=== PATIENT | male | born 1985 | race Hispanic/Latino ===

== ENCOUNTER 2017-10-03 12:38 | Inpatient (IN) | payer BC ==
[2017-10-03 13:13] VITALS: BMI 37.6
[2017-10-03 13:53] LABS: BASO # 0.14 K/mm3 (0.0-2.0); BASO % 1.3 % (0.0-3.0); EOS # 0.3 (0.0-0.7); EOS % 2.5 % (1.5-5.0); GRAN # 8.2 (1.4-6.5); GRAN % 74.9 % (50.0-68.0); HEMOGLOBIN 12.4 g/dL (14.0-18.0); LYMPH # 1.3 (1.2-3.4); LYMPH % 12.1 % (22.0-35.0); MEAN CELL VOLUME 96.7 fl (80.0-105.0); MEAN CORPUSCULAR HEMOGLOBIN 33.8 pg (25.0-35.0); MEAN CORPUSCULAR HGB CONC 34.9 g/dl (31.0-37.0); MEAN PLATELET VOLUME 12.6 fl (7.0-11.0); MONO % 9.2 % (1.0-6.0); RBC 3.67 10^6/uL (3.5-6.1); RED CELL DISTRIBUTION WIDTH 15.3 % (11.5-14.5); WHITE BLOOD COUNT 10.9 10^3/ul (4.5-11.0)
--- NOTE | 2017-10-03 13:59 | ED PDOC ---
Arrival/HPI - General Chief Complaint: Abnormal Skin Integrity Time Seen by Provider: 10/03/17 13:20 Historian: Patient - History of Present Illness Narrative History of Present Illness (Text): 10/03/17 13:30 32 year old male, who presents to the emergency department complaining of jaundice. Patient and dad reports the first blood work done on him was on September 13 and the last blood work was done one week ago with abnormal findings of Billirubin increase from 13 to 23 and increase in his ALT / AST as well. Patient states he used to be a heavy drinker and has currently stopped. Patient denies other complaints. PMD: Dr. Manzo Time/Duration: Prior to Arrival Symptom Onset: Sudden Symptom Course: Unchanged Past Medical History - Provider Review Nursing Documentation Reviewed: Yes - Hematological/Oncological Other/Comment: EBV - Psychiatric Hx Depression: No Hx Emotional Abuse: No Hx Physical Abuse: No Hx Substance Use: No - Surgical History Other/Comment: left shoulder surgery - Anesthesia Hx Anesthesia: Yes Hx Anesthesia Reactions: No - Suicidal Assessment Feels Threatened In Home Enviroment: No Family/Social History - Physician Review Nursing Documentation Reviewed: Yes Family/Social History: Unknown Family HX Smoking Status: Light Smoker < 10 Cigarettes Daily Hx Alcohol Use: Yes Frequency of alcohol use: Daily Hx Substance Use: No Hx Substance Use Treatment: No Allergies/Home Meds Allergies/Adverse Reactions: Allergies No Known Allergies Allergy (Verified 10/03/17 18:45) Home Medications: Home Meds Medication Instructions Recorded Confirmed Acamprosate Calcium 333 mg PO TID 10/03/17 10/03/17 Acyclovir 5% [Zovirax] 1 tsp TP 5XD 10/03/17 10/03/17 Pantoprazole Sodium [Protonix] 20 mg PO DAILY 10/03/17 10/03/17 diaZEpam [Valium] 5 mg PO TID 10/03/17 10/03/17 Review of Systems - Review of Systems Constitutional: absent: Fevers Eyes: absent: Vision Changes Respiratory: absent: SOB Cardiovascular: absent: Chest Pain Gastrointestinal: absent: Abdominal Pain Genitourinary Male: absent: Dysuria Musculoskeletal: absent: Back Pain Skin: Other (jaundice ). absent: Rash Neurological: absent: Headache Physical Exam Vital Signs Reviewed: Yes Vital Signs Temp Pulse Resp BP Pulse Ox 10/03/17 16:47 72 18 142/82 98 10/03/17 15:00 86 18 148/79 97 10/03/17 13:01 98.2 F 94 H 18 154/85 H 97 Temperature: Afebrile Blood Pressure: Hypertensive Pulse: Tachycardic Respiratory Rate: Normal Appearance: Positive for: Well-Appearing, Non-Toxic, Comfortable Pain Distress: None Mental Status: Positive for: Alert and Oriented X 3 - Systems Exam Head: Present: Atraumatic, Normocephalic Pupils: Present: PERRL Extroacular Muscles: Present: EOMI Conjunctiva: Present: Icteric Mouth: Present: Moist Mucous Membranes Respiratory/Chest: Present: Clear to Auscultation, Good Air Exchange. No: Respiratory Distress, Accessory Muscle Use, Wheezes, Rales, Rhonchi Cardiovascular: Present: Regular Rate and Rhythm, Normal S1, S2. No: Murmurs Abdomen: Present: Normal Bowel Sounds, Other (Hepatomegaly; splenomegaly). No: Tenderness, Distention, Peritoneal Signs, Rebound, Guarding, McBurney's Point Tender, Rovsing's Sign Present Neurological: Present: GCS=15, CN II-XII Intact, Speech Normal Skin: Present: Warm, Dry, Other (Jaundice ). No: Rashes, Normal Color Psychiatric: Present: Alert, Oriented x 3, Normal Insight, Normal Concentration Medical Decision Making ED Course and Treatment: 10/03/17 Impression: 32 year old male who is jaundice, with hepatsplenomegaly and icetric eyes Differential Diagnosis included but are not limited to: Liver cancer; cholecytitis; biliary colic; ascending cholangitis Plan: -- Labs -- Urinalysis -- Ultrasound -- Reassess and disposition Progress Notes: 10/03/17 14:55 Ultrasound: Creator : Joaquin Horowitz MD FINDINGS: LIVER: Measures 23.9 cm. Diffusely increased echogenicity of the liver parenchyma suggests diffuse fatty infiltration. The liver extends well inferior to the lower pole of the right kidney and appears to wrap around the lower pole right kidney as well. No definite mass. No intrahepatic bile duct dilatation. GALLBLADDER: Gallbladder appears mildly distended with sludge layering the dependent portion. There is no sonographic Brennan sign. Trace fluid is difficult to exclude at the anterior pericholecystic space though this is not definite. COMMON BILE DUCT: Measures 3.0 mm. No stones. No dilatation. PANCREAS: Pancreatic head through distal body appears unremarkable however the tail is obscured by overlying bowel gas. RIGHT KIDNEY: Measures 14.9cm. Normal echogenicity. No calculus, mass, or hydronephrosis. LEFT KIDNEY: Measures 14.3cm. Normal echogenicity. No calculus, mass, or hydronephrosis. SPLEEN: The spleen is enlarged to 17.6 cm without focal mass appreciable. AORTA: No aneurysmal dilatation. IVC: Unremarkable. OTHER FINDINGS: None. IMPRESSION: Hepatic splenomegaly without focal mass in either the liver or the spleen. Diffuse hepatic steatosis is identified. No definite pattern of biliary tree dilatation although sludge is seen layering in the gallbladder. Borderline pericholecystic fluid without mural thickening or sonographic Brennan' s sign. Partial imaging of the pancreas. Case was discussed in detail with Dr. Davis, who agrees to admit patient to his service. He requested Dr. Rodriguez GI. A consult was placed. I explained the results to the patient. He and his father understand the plan for admission. He is currently hemodynamically stable. - Lab Interpretations Lab Results: 10/03/17 13:42 10/03/17 13:42 Lab Results 10/03/17 14:10: Urine Color Dark yellow, Urine Appearance Clear, Urine pH 6.5, Ur Specific [place] 1.015, Urine Protein Trace H, Urine Glucose (UA) 100 H, Urine Ketones Trace H, Urine Blood Negative, Urine Nitrate Negative, Urine Bilirubin Large H, Urine Urobilinogen 1.0 H, Ur Leukocyte Esterase Negative, Urine RBC 0 - 2, Urine WBC 2 - 5, Ur Epithelial Cells None, Amorphous Sediment Few, Urine Bacteria Many, Coarse Granular Casts Trace H, Urine Other Uyeast 10/03/17 13:42: Acetaminophen < 10.0 L 10/03/17 13:42: Sodium 136, Potassium 3.6, Chloride 99, Carbon Dioxide 28, Anion Gap 13, BUN 9, Creatinine 0.6 L, Est GFR ( Amer) > 60, Est GFR (Non -Af Amer) > 60, Random Glucose 101, Calcium 8.6, Magnesium 2.2, Total Bilirubin 16.5 H, Direct Bilirubin 14.4 H, AST 168 H, ALT 94 H, Alkaline Phosphatase 167 H , Total Protein 7.6, Albumin 3.5, Globulin 4.1, Albumin/Globulin Ratio 0.8 L, Lipase 135 10/03/17 13:42: PT 17.3 H, INR 1.50 H, APTT 32.1 10/03/17 13:42: WBC 10.9, RBC 3.67, Hgb 12.4 L, Hct 35.5 L, MCV 96.7, MCH 33.8, MCHC 34.9, RDW 15.3 H, Plt Count 246, MPV 12.6 H, Gran % 74.9 H, Lymph % (Auto) 12.1 L, [place] % (Auto) 9.2 H, Eos % (Auto) 2.5, Baso % (Auto) 1.3, Gran # 8.20 H , Lymph # (Auto) 1.3, [place] # (Auto) 1.0 H, Eos # (Auto) 0.3, Baso # (Auto) 0.14 - RAD Interpretation Radiology Orders: 10/03/17 13:42 ABDOMEN COMPLETE [US] Stat Folder Inspector: Radiologist - Medication Orders Current Medication Orders: Chlordiazepoxide (Librium) 25 mg PO Q6 PRN; Protocol PRN Reason: Agitation Chlordiazepoxide (Librium) 25 mg PO TID [facility] PRN Reason: Protocol Dextrose/Sodium Chloride (Dextrose 5%/0.45% Ns 1000 Ml) 1,000 mls @ 100 mls/hr IV .Q10H [facility] Folic Acid 1 mg/ Thiamine HCl 100 mg/ Multivitamins/Vitamin C 10 ml/ Dextrose/ Sodium Chloride 1,011.2 mls @ 100 mls/hr IV .Q10H7M [facility] Ondansetron HCl (Zofran Inj) 4 mg IVP Q4H PRN PRN Reason: Nausea/Vomiting Pantoprazole Sodium (Protonix Ec Tab) 20 mg PO 0600 [facility] Thiamine HCl (Vitamin B1 Inj) 100 mg IM DAILY [facility] - Scribe Statement The provider has reviewed the documentation as recorded by the Didi Mcmanus Provider Scribe Attestation: All medical record entries made by the Scribe were at my direction and personally dictated by me. I have reviewed the chart and agree that the record accurately reflects my personal performance of the history, physical exam, medical decision making, and the department course for this patient. I have also personally directed, reviewed, and agree with the discharge instructions and disposition. Disposition/Present on Arrival - Present on Arrival Any Indicators Present on Arrival: No History of DVT/PE: No History of Uncontrolled Diabetes: No Urinary Catheter: No History of Decub. Ulcer: No History Surgical Site Infection Following: None - Disposition Have Diagnosis and Disposition been Completed?: Yes Diagnosis: Jaundice, Elevated liver enzymes, Hyperbilirubinemia Disposition: HOSPITALIZED Disposition Time: 18:56 Patient Plan: Admission Condition: FAIR
[2017-10-03 14:07] LABS: ALT/SGPT 94 U/L (7-56); AST/SGOT 168 U/L (17-59); BILIRUBIN,DIRECT 14.4 mg/dL (0.0-0.4); BLOOD UREA NITROGEN 9 mg/dL (7-21); CALCIUM 8.6 mg/dL (8.4-10.5); GFR AFRICAN-AMERICAN > 60; GFR NON-AFRICAN AMERICAN > 60; LIPASE 135 U/L (23-300)
[2017-10-03 14:10] LABS: ALB/GLOB RATIO 0.8 (1.1-1.8); ALBUMIN 3.5 g/dL (3.0-4.8); INR 1.5 (0.93-1.08); PARTIAL THROMBOPLASTIN TIME 32.1 Seconds (25.1-36.5); PROTHROMBIN TIME 17.3 SECONDS (9.4-12.5)
[2017-10-03 14:23] LABS: PH,URINE 6.5 (4.7-8.0); URINE BILIRUBIN LARGE (NEGATIVE); URINE BLOOD NEGATIVE (NEGATIVE); URINE COLOR DARK YELLOW (YELLOW); URINE GLUCOSE (UA) 100 mg/dL (NEGATIVE); URINE LEUKOCYTE ESTERASE NEGATIVE Leu/uL (NEGATIVE); URINE PROTEIN TRACE mg/dL (<30 mg/dL)
[2017-10-03 14:24] LABS: URINE APPEARANCE CLEAR (CLEAR)
[2017-10-03 14:30] LABS: URINE BACTERIA MANY (NEG); URINE COARSE GRANULAR CAST TRACE /hpf (0-2); URINE RBC 0 - 2 /hpf (0-2)
[2017-10-03 14:31] LABS: URINE AMORPHOUS SEDIMENT FEW
--- NOTE | 2017-10-03 14:54 | US ---
HISTORY: abd pain elev LFTS/elev bili r/o cholecysitis COMPARISON: None. TECHNIQUE: Sonographic evaluation of the abdomen. FINDINGS: LIVER: Measures 23.9 cm. Diffusely increased echogenicity of the liver parenchyma suggests diffuse fatty infiltration. The liver extends well inferior to the lower pole of the right kidney and appears to wrap around the lower pole right kidney as well. No definite mass. No intrahepatic bile duct dilatation. GALLBLADDER: Gallbladder appears mildly distended with sludge layering the dependent portion. There is no sonographic Brennan sign. Trace fluid is difficult to exclude at the anterior pericholecystic space though this is not definite. COMMON BILE DUCT: Measures 3.0 mm. No stones. No dilatation. PANCREAS: Pancreatic head through distal body appears unremarkable however the tail is obscured by overlying bowel gas. RIGHT KIDNEY: Measures 14.9cm. Normal echogenicity. No calculus, mass, or hydronephrosis. LEFT KIDNEY: Measures 14.3cm. Normal echogenicity. No calculus, mass, or hydronephrosis. SPLEEN: The spleen is enlarged to 17.6 cm without focal mass appreciable. AORTA: No aneurysmal dilatation. IVC: Unremarkable. OTHER FINDINGS: None. IMPRESSION: Hepatic splenomegaly without focal mass in either the liver or the spleen. Diffuse hepatic steatosis is identified. No definite pattern of biliary tree dilatation although sludge is seen layering in the gallbladder. Borderline pericholecystic fluid without mural thickening or sonographic Brennan's sign. Partial imaging of the pancreas.
[2017-10-03] MEDS ORDERED: Dextrose 5%/0.45% NS 1,000 ML IV SCH (19:00)
[2017-10-03] MEDS ORDERED: Folic Acid 1 MG, Thiamine 100 MG, Multivitamin (MVI) 10 ML in Dextrose 5%/0.45% NS 1,00... IV SCH (19:00)
[2017-10-03 21:07] LABS: HEPATITIS B SURFACE AG Negative (NEGATIVE)
[2017-10-03 21:13] LABS: HEPATITIS A IGM NEGATIVE (NEGATIVE); HEPATITIS B CORE AB NEGATIVE (NEGATIVE)
[2017-10-03 21:24] LABS: HEPATITIS C ANTIBODY NEGATIVE (NEGATIVE)
[2017-10-03] MEDS ORDERED: Pneumococcal 23-Valent Vaccine IM ONE (22:47)
[2017-10-04] MEDS ORDERED: Folic Acid 1 MG, Thiamine 100 MG, Multivitamin (MVI) 10 ML in Dextrose 5%/0.45% NS 1,00... IV SCH (05:30)
[2017-10-04] MEDS: Pantoprazole 20 mg EC Tab PO SCH (05:42)
[2017-10-04 07:12] LABS: BASO # 0.14 K/mm3 (0.0-2.0); BASO % 1.3 % (0.0-3.0); EOS # 0.3 (0.0-0.7); EOS % 2.3 % (1.5-5.0); GRAN # 8.39 (1.4-6.5); GRAN % 77.1 % (50.0-68.0); HEMOGLOBIN 12.3 g/dL (14.0-18.0); LYMPH # 1.3 (1.2-3.4); LYMPH % 11.8 % (22.0-35.0); MEAN CELL VOLUME 96.5 fl (80.0-105.0); MEAN CORPUSCULAR HEMOGLOBIN 32.9 pg (25.0-35.0); MEAN CORPUSCULAR HGB CONC 34.1 g/dl (31.0-37.0); MONO # 0.8 (0.1-0.6); MONO % 7.5 % (1.0-6.0); RBC 3.74 10^6/uL (3.5-6.1); RED CELL DISTRIBUTION WIDTH 15.2 % (11.5-14.5); WHITE BLOOD COUNT 10.9 10^3/ul (4.5-11.0)
[2017-10-04 07:52] LABS: FREE T4 1.81 ng/dL (0.78-2.19)
[2017-10-04 08:02] LABS: ALB/GLOB RATIO 0.9 (1.1-1.8); ALBUMIN 3.6 g/dL (3.0-4.8); ALT/SGPT 99 U/L (7-56); AMYLASE 78 U/L (35-125); AST/SGOT 170 U/L (17-59); BLOOD UREA NITROGEN 6 mg/dL (7-21); CALCIUM 8.7 mg/dL (8.4-10.5); GFR AFRICAN-AMERICAN > 60; GFR NON-AFRICAN AMERICAN > 60; LIPASE 100 U/L (23-300)
[2017-10-04 08:34] VITALS: RESP 20
[2017-10-04] MEDS ORDERED: Gadodiamide 287 MG/ML VIAL (20ML) IV ONE (08:53)
--- NOTE | 2017-10-04 09:50 | HP ---
DATE OF EXAM: 10/03/2017 HISTORY OF PRESENT ILLNESS: This is a 32-year-old man known to my practice for many years, over the course of time grew through adolescence into young adolescent and develop a liking to periodic drinking. Patient reports that over a year ago, he started drinking a bit more heavily and had gotten out of control. A few weeks ago, work has been particularly stressful with a new general promotion. A few weeks ago, at work noticed white were yellow. He was on a camping trip and contracted severe poison jason. He has constellation of symptoms prompted him to come to see to the office. He was initially seen and treated by Dr. Les Pizarro, were covered the poison jason. He returned a few days later with blood test at which time his total bilirubin and liver enzymes were markedly elevated. The patient attributed this to heavy alcohol consumption. Repeat labs a few days later showed the to be equal in time and therefore admission was advanced. Patient was seen and evaluated in the emergency room, bilirubin had come down to 18, LFTs were moderately elevated. Ultrasound was done showing no hepatic mass or tumor. No evidence of obstruction, fatty liver, mild splenomegaly, no ascites. Arrangements were made for the patient to be admitted. GI consultation with Dr. Morris was requested. PAST MEDICAL HISTORY: Negative for hypertension, diabetes, tuberculosis, asthma, seizures. No history of coronary artery disease, TIA, CVA, ASCVD or cancer. MEDICATIONS : He does not take any medications at home except for proton pump inhibitor. ALLERGIES: HE IS NOT ALLERGIC TO ANY MEDICINES. SOCIAL HISTORY: He does smoke approximately half pack cigarettes a day. He drinks alcohol, lately he has been drinking an extra sort of quart of vodka a day. He is single, no children. His parents are close to him. REVIEW OF SYSTEMS: Negative except for symptoms related to reflux, stress, anxiety, history of panic attacks. PHYSICAL EXAMINATION: GENERAL: Patient was seen this evening in room 568, bed 2 with his father at the bedside. He is lying in the bed comfortable, was markedly jaundiced skin, icteric sclerae, but in no acute distress. HEENT: Head and neck are remarkable for any icterus as noted above. Mucous membranes are moist. NECK: Supple without masses. Thyroid is not palpable. LUNGS: Good aeration right and left. HEART: Regular, not tachycardic. ABDOMEN: Soft. Liver edge was palpable. I could not feel the spleen, as the patient was moderately obese. EXTREMITIES: Show no edema. Dorsalis pedis and posterior tibial pulses are present. SKIN: Was jaundiced. IMPRESSION: 1. Jaundice. 2. History of heavy alcohol consumption. PLAN: I spoke with the patient at length regarding the purpose of this hospitalization and workup. We will meet with GI, did a MRCP. I will cover him with vitamins, thiamine and benzodiazepines to reduce the risk of alcohol withdrawal symptoms. Examine to protracted hospital stay. I explained the importance of absolute abstinence from alcohol for reminder of his life, I am optimistic that this difficult task would result in a normal life expectancy. With continued alcohol consumption in range he has been, his prognosis is grim in short time, 1 to 2 years. The patient is aware. MRCP is ordered. IV fluids, vitamins, thiamine are ordered. We will discuss with GI and await for results of MRCP. González Pizarro MD
--- NOTE | 2017-10-04 10:30 | MRI ---
PROCEDURE: MRI Abdomen with and without contrast plus MRCP imaging HISTORY: Jaundice COMPARISON: Abdominal ultrasound 10/03/2017. TECHNIQUE: Multisequence, multiplanar MR images of the abdomen with and without gadolinium contrast enhancement. 20 cc of Omniscan FINDINGS: LIVER: There is hepatomegaly and severe fatty infiltration of the liver. There is a heterogeneous enhancement pattern. GALLBLADDER: There is severe fatty infiltration of the liver. SPLEEN: Unremarkable. PANCREAS: Unremarkable. ADRENALS: Unremarkable. KIDNEYS: Unremarkable. AORTA: No aneurysm. ASCITES: None. PERITONEUM: Unremarkable. LYMPH NODES: Unremarkable. OTHER FINDINGS: None. IMPRESSION: Severe fatty infiltration of the liver and hepatomegaly. The common duct is unremarkable. There are no stones or obstruction
[2017-10-04] MEDS ORDERED: Barium Sulfate Susp 2.1% w/v, 2.0% w/w 450 mL Bottle PO ONE (12:17)
[2017-10-04] MEDS: PrednisoLONE 15 mg/5 ml Oral Syrup (240 ml) PO SCH ×2 (13:22→19:47)
[2017-10-04] MEDS: Thiamine 100 mg/ml Inj IM SCH (13:23)
[2017-10-04 13:44] LABS: FOLATE 11.3 ng/mL
--- NOTE | 2017-10-04 13:44 | CP.PCM.CON ---
History of Present Illness - History of Present Illness History of Present Illness: S&E at bedside earlier today,chart review. Mother at bedside. Request for GI consult is for hyperbilirubinemia/elevated LFTs. HPI: This is a 32-year-old male with no significant medical history. Came to the emergency room for complaints of jaundice. Patient reports that he was seen at his primary care physician's office for complaints of fatigue, and appearing" yellowish". Patient at the time had poison oak and thought that this may have been contribution into his symptoms. The patient endorses that he also had been drinking excessive amount of alcohol for about 6 months now every day. He had blood work done and was told that he had elevated liver enzymes/bilirubin, he recalls the last level being at 23. He does report a history of anxiety/stress from his new job. He denies any history of infectious hepatitis or any gallbladder pathology. Denies any intake of dietary supplements or herbal medications. No complaints of any nausea, vomiting, or abdominal pain. The patient reports that he hasn't had any alcohol intake for 13 days now. On admission his total bilirubin was at 16.5. He also had an abdominal ultrasound which did show gallbladder distention with sludge, no Brennan sign or trace fluid. Questionable pericholecystic fluid, no wall thickening. The CBD measured 3.0 mm. Positive hepatosplenomegaly with no liver mass or dilatation of intrahepatic ducts there is diffuse fat on the liver. The patient was then sent for an MRCP this morning and those results are noted. There are no CBD stones or biliary dilatation, again they report fatty infiltrations on the liver., pancreas was unremarkable. Patient denies any unintentional weight loss, patient states he is losing weight reports he is a bit more active and watching his diet. No loss of appetite. No reports of any change in bowel habits or overt GI bleed. Past medical history: Anxiety, denies any cardiac, pulmonary or other significant medical history Surgical history: Left shoulder surgery Allergies: No known drug allergies Medications: Reviewed as per MAR Family history: Grandfather with throat cancer, was a smoker/grandmother with brain cancer/father with colon cancer Social history: Positive for EtOH, patient drank every day for the last 6 months , stopped drinking 13 days ago, smokes maybe 5 or 10 cigarettes reports it varies, no current use of illicit drugs used to smoke marijuana in the past. ROS: Systems reviewed with positive findings the HPI. Past Patient History - Past Social History Smoking Status: Current Some Days Smoker - CARDIAC Hx Cardiac Disorders: No - PULMONARY Hx Respiratory Disorders: Yes (SMOKES CIGARETTES 1/2 PPD) - NEUROLOGICAL Hx Neurological Disorder: No - HEENT Hx HEENT Problems: No - RENAL Hx Chronic Kidney Disease: No - ENDOCRINE/METABOLIC Hx Endocrine Disorders: No - HEMATOLOGICAL/ONCOLOGICAL Hx Blood Disorders: Yes (HYPERBILIRUBINEMIA-JAUNDICED) Other/Comment: EBV - INTEGUMENTARY Hx Dermatological Problems: Yes (JAUNDICED 10-03-17) - MUSCULOSKELETAL/RHEUMATOLOGICAL Hx Musculoskeletal Disorders: Yes (LEFT SHOULDER SX) Hx Falls: Yes - GASTROINTESTINAL Hx Gastrointestinal Disorders: Yes Hx Gastroesophageal Reflux: Yes - GENITOURINARY/GYNECOLOGICAL Hx Genitourinary Disorders: No - PSYCHIATRIC Hx Psychophysiologic Disorder: Yes (SMOKES CIGARETTES,ETOH ABUSE-DRINKS VODKA 2 PINTS. QUIT SEPTEMBER 23) Hx Depression: No Hx Emotional Abuse: No Hx Physical Abuse: No Hx Substance Use: No - SURGICAL HISTORY Hx Surgeries: Yes Other/Comment: left shoulder surgery - ANESTHESIA Hx Anesthesia: Yes Hx Anesthesia Reactions: No Meds Allergies/Adverse Reactions: Allergies Allergy/AdvReac Type Severity Reaction Status Date / Time No Known Allergies Allergy Verified 10/03/17 18:45 - Medications Medications: Current Medications Chlordiazepoxide (Librium) 25 mg PO Q6 PRN; Protocol PRN Reason: Agitation Last Admin: 10/04/17 08:36 Dose: 25 mg Chlordiazepoxide (Librium) 25 mg PO TID [facility] PRN Reason: Protocol Folic Acid (Folic Acid) 1 mg PO DAILY [facility] Folic Acid 1 mg/ Thiamine HCl 100 mg/ Multivitamins/Vitamin C 10 ml/ Dextrose/ Sodium Chloride 1,011.2 mls @ 100 mls/hr IV .Q10H7M [facility] Stop: 10/04/17 15:36 Multivitamins (Thera Tab) 1 tab PO DAILY [facility] Ondansetron HCl (Zofran Inj) 4 mg IVP Q4H PRN PRN Reason: Nausea/Vomiting Pantoprazole Sodium (Protonix Ec Tab) 20 mg PO 0600 [facility] Last Admin: 10/04/17 05:42 Dose: 20 mg Thiamine HCl (Vitamin B1 Inj) 100 mg IM DAILY [facility] Physical Exam - Constitutional Appears: No Acute Distress - Head Exam Head Exam: NORMOCEPHALIC - Eye Exam Eye Exam: Scleral icterus - ENT Exam ENT Exam: Mucous Membranes Moist - Neck Exam Neck exam: Positive for: Normal Inspection - Respiratory Exam Respiratory Exam: Decreased Breath Sounds (good air entry), NORMAL BREATHING PATTERN. absent: Rales, Wheezes, Respiratory Distress - Cardiovascular Exam Cardiovascular Exam: +S1, +S2 - GI/Abdominal Exam GI & Abdominal Exam: Distended, Normal Bowel Sounds, Soft. absent: Guarding, Organomegaly, Rebound, Tenderness - Extremities Exam Extremities exam: Positive for: pedal pulses present (left anterior leg noted to have ecchymotic area, patient reports that he hit his leg.). Negative for: calf tenderness, pedal edema - Neurological Exam Neurological exam: Alert, Oriented x3 - Skin Skin Exam: Dry (jaundice), Warm Results - Vital Signs Recent Vital Signs: Last Vital Signs Temp 98.2 F 10/04/17 07:00 Pulse 82 10/04/17 07:00 Resp 20 10/04/17 07:00 BP 145/94 H 10/04/17 07:00 Pulse Ox 99 10/04/17 07:00 - Labs Result Diagrams: 10/04/17 06:30 10/04/17 06:30 Labs: Laboratory Results - last 24 hr 10/04/17 10/04/17 10/04/17 06:30 06:30 06:30 WBC 10.9 RBC 3.74 Hgb 12.3 L Hct 36.1 L MCV 96.5 MCH 32.9 MCHC 34.1 RDW 15.2 H Plt Count 247 MPV 12.0 H Gran % 77.1 H Lymph % (Auto) 11.8 L [place] % (Auto) 7.5 H Eos % (Auto) 2.3 Baso % (Auto) 1.3 Gran # 8.39 H Lymph # (Auto) 1.3 [place] # (Auto) 0.8 H Eos # (Auto) 0.3 Baso # (Auto) 0.14 Sodium 139 Potassium 3.6 Chloride 101 Carbon Dioxide 27 Anion Gap 14 BUN 6 L Creatinine 0.4 L Est GFR ( Amer) > 60 Est GFR (Non-Af Amer) > 60 Random Glucose 97 Calcium 8.7 Total Bilirubin 14.3 H AST 170 H ALT 99 H Alkaline Phosphatase 140 H Total Protein 7.4 Albumin 3.6 Globulin 3.8 Albumin/Globulin Ratio 0.9 L Amylase 78 Lipase 100 Free T4 1.81 TSH 3rd Generation 4.55 Assessment & Plan - Assessment and Plan (Free Text) Assessment: Assessment: Hyperbilirubinemia/elevated LFTs likely secondary to Acute Alcoholic hepatitis, patient with MELD score of 34, Discriminate factor at 36.4 Hepatosplenomegaly, status post abdominal ultrasound showed gallbladder sludge, CBD measured 3.0 mm, no focal mass in liver or spleen/MRCP negative for CBD stone, no CBD dilatation, again show fatty liver, pancreas, spleen unremarkable EtOH Anxiety Family history of colon cancer Plan: Transient LFT Monitor PT/INR Start prednisone alone 20 mg twice a day Start Carafate twice a day On Protonix 20 daily Diet as tolerated Alcohol cessation Continue IVF with MVI On thiamine, on Librium Request for CT scan of abdomen and pelvis with only oral contrast, patient status post MRI contrast Thank you for this consult and for allowing us to participate in the patient's care, further recommendations based upon clinical course. Plan discussed with patient and family at bedside, questions answered. Seen and discussed with Dr. Morris.
--- NOTE | 2017-10-04 18:02 | CT ---
PROCEDURE: CT Abdomen and Pelvis with contrast HISTORY: hepatosplenomegaly, elevated elevated LFTs. Family history: Cancer COMPARISON: October 03, 2017. Abdominal ultrasound. Summary of findings on the comparison examination:Hepatic splenomegaly without focal mass in either the liver or the spleen October 04, 2017. MRI abdomen with and without contrast plus MRCP imaging TECHNIQUE: Contrast dose: Oral contrast only. Radiation dose: Total exam DLP = 1387.00 mGy-cm. This CT exam was performed using one or more of the following dose reduction techniques: Automated exposure control, adjustment of the mA and/or kV according to patient size, and/or use of iterative reconstruction technique. FINDINGS: LOWER THORAX: Unremarkable. LIVER: Hepatomegaly, profound hepatic steatosis. No focal abnormalities. Cephalocaudal length of the liver 29.5 cm. Orthogonal measurement 12.4 cm. GALLBLADDER AND BILE DUCTS: Debris, sludge identified in the gallbladder. No stones are identified PANCREAS: Unremarkable. No gross lesion or ductal dilatation. SPLEEN: Splenomegaly. Orthogonal measurements 8.9 x 16.4 cm. No focal abnormalities. ADRENALS: Unremarkable. No mass. KIDNEYS AND URETERS: Unremarkable. No hydronephrosis. No solid mass. VASCULATURE: Unremarkable. No aortic aneurysm. BOWEL: Luminal narrowing, mural thickening of a short segment of the rectosigmoid. This may be related to collapse Hattie under distention. However, given the clinical history follow-up recommended Please refer to axial series 3/ image 172. Coronal series 601 image [id number]. The finding is marked on the study for review. APPENDIX: Normal appendix. PERITONEUM: Unremarkable. No free fluid. No free air. LYMPH NODES: Unremarkable. No enlarged lymph nodes. BLADDER: Unremarkable. REPRODUCTIVE: Unremarkable. BONES: No acute fracture. OTHER FINDINGS: None. IMPRESSION: Hepatosplenomegaly without focal abnormality. Short segment thickening rectosigmoid region. Follow-up recommended based on family history in findings Additional benign and/or incidental findings described above.
[2017-10-04] MEDS: Sucralfate 1 gm/10 ml Oral Susp UD PO SCH (19:47)
--- NOTE | 2017-10-04 21:11 | PN ---
DATE: 10/04/2017 DAILY PROGRESS NOTE SUBJECTIVE: Patient is in room 568, bed 2, this Saturday morning. He has gone for MRCP right now. Case was discussed with Dr. 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 We discussed the benefits of a CT scan of the abdomen and pelvis with oral contrast which will be ordered for tomorrow. The patient was also started on steroids as this would be of benefit to him today and for near future. This morning labs were ordered and he will most likely be ready for discharge to home tomorrow after CT scan on oral steroid regimen. González Pizarro MD
[2017-10-05] MEDS: Sucralfate 1 gm/10 ml Oral Susp UD PO SCH (05:13)
[2017-10-05] MEDS: Pantoprazole 20 mg EC Tab PO SCH (05:13)
[2017-10-05 07:26] LABS: BASO # 0.07 K/mm3 (0.0-2.0); BASO % 0.6 % (0.0-3.0); EOS # 0.1 (0.0-0.7); EOS % 0.8 % (1.5-5.0); GRAN # 9.48 (1.4-6.5); GRAN % 80.6 % (50.0-68.0); HEMOGLOBIN 12.5 g/dL (14.0-18.0); LYMPH # 1.5 (1.2-3.4); LYMPH % 12.4 % (22.0-35.0); MEAN CELL VOLUME 97.9 fl (80.0-105.0); MEAN CORPUSCULAR HEMOGLOBIN 32.8 pg (25.0-35.0); MEAN CORPUSCULAR HGB CONC 33.5 g/dl (31.0-37.0); MEAN PLATELET VOLUME 12.2 fl (7.0-11.0); MONO # 0.7 (0.1-0.6); MONO % 5.6 % (1.0-6.0); RBC 3.81 10^6/uL (3.5-6.1); RED CELL DISTRIBUTION WIDTH 14.9 % (11.5-14.5); WHITE BLOOD COUNT 11.8 10^3/ul (4.5-11.0)
[2017-10-05 07:37] LABS: INR 1.38 (0.93-1.08)
[2017-10-05 07:49] LABS: ALB/GLOB RATIO 0.9 (1.1-1.8); ALBUMIN 3.5 g/dL (3.0-4.8); ALT/SGPT 112 U/L (7-56); AST/SGOT 176 U/L (17-59); BLOOD UREA NITROGEN 6 mg/dL (7-21); CALCIUM 9.1 mg/dL (8.4-10.5); GFR AFRICAN-AMERICAN > 60; GFR NON-AFRICAN AMERICAN > 60
[2017-10-05 08:27] VITALS: BP 100/70; PULSE 71; TEMP 98; O2SAT 100
[2017-10-05] MEDS: Thiamine 100 mg/ml Inj IM SCH (09:49)
[2017-10-05] MEDS ORDERED: Multivitamin Therapeutic Tab PO SCH (10:00)
--- NOTE | 2017-10-06 15:12 | DS ---
HISTORY OF PRESENT ILLNESS: This is a 32-year-old man with essentially no past medical history except for some shoulder surgery who began drinking more heavily about a year ago. At his own admission, he was counseled by his friends but just lately his drinking got a little out of hand until someone noticed that the whites of his eyes were turning yellow. He was seen in the office and medical evaluation showed total bilirubin is 18 from drinking; on followup, it went up to 23 and so the patient was admitted for further workup and GI evaluation. COURSE OF HOSPITAL STAY: GI consultation by Dr. Morris was done and greatly appreciated. The patient was started on prednisolone [address] MRCP and CT scan of the abdomen was added to the ultrasound already done in the ER. Both tests confirmed hepatosplenomegaly. No other significant findings. There was a concern about thickening of the sigmoid colon on CT scan, which will be followed up as an outpatient. The bilirubin on admission was 18, he was counseled at great length regarding alcohol use so many drinks in lifetime and I guess he used all of his. The patient was discharged to home. Prescription was called for prednisolone. He was also started on Paxil 10 mg daily for his chronic anxiety. Given a dose of benzodiazepine for anxiety as well as to prevent any further withdrawal symptoms, although now since it is two weeks since his last drink, that is less likely. He will follow up with us in the office in a few days. Follow up with GI for outpatient sigmoidoscopy and he is referred to AA and additional counseling. FINAL DISCHARGE DIAGNOSES: 1. Acute liver injury. 2. Jaundice. 3. Alcoholic hepatitis. 4. Chronic anxiety disorder. 5. Status post orthopedic surgery to the left shoulder. González Pizarro MD
== END 2017-10-05 13:58 | disposition home or self-care (01) | DRG 443 ==
LOC: ED 12:38 → ERH 15:10 → 5RNO 16:53
PROVIDERS: ADMIT Internal Medicine; ATTEND Internal Medicine
DX: S36.119A Unspecified injury of liver, initial encounter (principal); K70.10 Alcoholic hepatitis without ascites; F41.9 Anxiety disorder, unspecified; K21.9 Gastro-esophageal reflux disease without esophagitis; K76.0 Fatty (change of) liver, not elsewhere classified; K82.8 Other specified diseases of gallbladder; F17.210 Nicotine dependence, cigarettes, uncomplicated; L23.7 Allergic contact dermatitis due to plants, except food; Z80.0 Family history of malignant neoplasm of digestive organs; Z80.8 Family history of malignant neoplasm of other organs or systems; F10.10 Alcohol abuse, uncomplicated

== ENCOUNTER 2018-01-19 12:44 | Emergency (ER) | payer BC ==
[2018-01-19 12:44] VITALS: BMI 37.6
== END 2018-01-19 12:57 | disposition left against medical advice (07) ==
LOC: ED 12:44
DX: Z02.89 Encounter for other administrative examinations (principal); Z00.00 Encounter for general adult medical examination without abnormal findings

== ENCOUNTER 2018-03-07 10:04 | Day surgery (SDC) | payer BC ==
[2018-03-07] MEDS ORDERED: Midazolam 2 MG/2 ML VIAL ONE (11:57)
[2018-03-07] MEDS ORDERED: Propofol 10 mg/ml Inj (20 ML) ONE ×3 (11:57→12:27)
[2018-03-07] MEDS ORDERED: Sodium Chloride 0.9% 1,000 ML IV SCH (13:00)
[2018-03-07 13:19] VITALS: RESP 15
[2018-03-07 14:05] VITALS: BP 110/59; PULSE 68; TEMP 98; O2SAT 96
== END 2018-03-07 14:58 | disposition home or self-care (01) ==
LOC: ENDO 10:04
PROVIDERS: ATTEND Internal Medicine Gastroenterology
DX: I85.00 Esophageal varices without bleeding (principal); K22.70 Barrett's esophagus without dysplasia; K29.30 Chronic superficial gastritis without bleeding; K64.4 Residual hemorrhoidal skin tags; K64.8 Other hemorrhoids; K76.0 Fatty (change of) liver, not elsewhere classified
CPT/HCPCS: 43239; 45378; 88305; 88342; J2001; J2250; J2704; J3010; J7030; J7040